=== PATIENT | male | born 1980 | race Caucasian/White ===

== ENCOUNTER 2021-03-21 18:06 | Emergency (ER) | payer OTHER ==
[~2021-03-21 18:06] MED LIST: BACTRIM DS TAB1 EACH PO
[2021-03-21 18:50] LABS: BASOPHIL 0.5 % (0-2); EOSINOPHIL 0.3 % (0-5); HCT 50.5 % (42.0-52.0); HGB 18.1 g/dl (13.2-18.0); LYMPHOCYTE 12.5 % (15-48); MCH 32.3 pg (25.0-31.0); MCHC 35.8 g/dL (32.0-36.0); MONOCYTE 7.9 % (0-12); MPV 9.9 fL (6.0-9.5); NEUTROPHIL 78.3 % (41-80); NRBC 0; PLT 342 K/uL (150-400); RBC 5.61 M/uL (4.70-6.00); RDW 12.6 % (11.5-14.0); WBC 15.5 K/uL (4.0-10.5)
[2021-03-21 19:00] LABS: BILIRUBIN 1+ mg/dL (NEGATIVE); BLOOD TRACE-INTACT Ery/uL (NEGATIVE); CLARITY CLEAR (CLEAR); COLOR YELLOW (YELLOW); GLUCOSE (U) NORMAL (NORMAL); LEUKOCYTES NEGATIVE Leu/uL (NEGATIVE); NITRITE NEGATIVE (NEGATIVE); PROTEIN TRACE (LOW) mg/dL (NEGATIVE); SPECIFIC GRAVITY >=1.030 (1.001-1.030); UROBILINOGEN 0.2 mg/dL (0.2-1.0)
[2021-03-21 19:04] LABS: AMPHETAMINES POSITIVE (NEGATIVE); BARBITURATES NEGATIVE (NEGATIVE); ECSTASY (MDMA) NEGATIVE (NEGATIVE); MARIJUANA (THC) NEGATIVE (NEGATIVE); METHADONE NEGATIVE (NEGATIVE); OPIATES POSITIVE (NEGATIVE); OXYCODONE NEGATIVE (NEGATIVE)
[2021-03-21 19:06] LABS: AMORPHOUS URATES CRYSTALS TRACE; BACTERIA 1+; MUCOUS MODERATE; URINARY RBC RARE
[2021-03-21 19:28] LABS: CORONAVIRUS 2019 SARS-COV-2 NEGATIVE (NEGATIVE); INFLUENZA A NAA NEGATIVE (NEGATIVE)
[2021-03-21 19:32] LABS: ALBUMIN 4.8 g/dL (3.4-5.0); ALKALINE PHOSHATASE 96 U/L (46-116); ALT 24 U/L (16-63); AST 27 U/L (15-37); BILIRUBIN - TOTAL 0.8 mg/dL (0.2-1.0); BUN 21 mg/dL (7-18); BUN/CREAT RATIO (CALC) 16.4 RATIO; CHLORIDE 97 mmol/L (98-107); CO2 (BICARBONATE) 21 mmol/L (21-32); CREATININE 1.28 mg/dL (0.67-1.17); GLOBULIN (CALCULATION) 3.7 g/dL; GLUCOSE 105 mg/dL (74-106); TOTAL PROTEIN 8.5 g/dL (6.4-8.2)
[2021-03-21 19:36] LABS: ACETAMINOPHEN (TYLENOL) < 2.0 ug/mL (10.0-30.0)
== END 2021-03-22 00:15 | disposition home or self-care (01) ==
LOC: FER 18:06
PROVIDERS: Emergency Medicine
DX: F15.129 Other stimulant abuse with intoxication, unspecified (principal); F11.10 Opioid abuse, uncomplicated; N17.9 Acute kidney failure, unspecified; E87.6 Hypokalemia; S52.612A Displaced fracture of left ulna styloid process, initial encounter for closed fracture; I10 Essential (primary) hypertension; F17.210 Nicotine dependence, cigarettes, uncomplicated; Z20.822 Contact with and (suspected) exposure to COVID-19; X58.XXXA Exposure to other specified factors, initial encounter
CPT/HCPCS: 36415; 73100; 80053; 80305; 81001; 85025; 96372; G0480; J3480; J3486; J7030; U0002